=== PATIENT | female | born 1985 | race Caucasian/White ===

== ENCOUNTER 2021-03-20 08:23 | Outpatient (REF) | payer OTHER, SELFPAY ==
[2021-03-20 11:17] LABS: MANUAL DIFF FLAG NO
[2021-03-20 11:19] LABS: Glucose Urine UA NEG (NEG); Leukocyte Esterase Urine NEG (NEG); Nitrite Urine NEG (NEG); Specific Gravity - Urine <= 1.005 (1.005-1.025); Urine Blood TRACE (NEG); Urine Ketones NEG (NEG); Urine Protein NEG (NEG-TRACE)
[2021-03-20 11:22] LABS: Appearance Urine HAZY; Color Urine STRAW
[2021-03-20 11:29] LABS: Basophils Percent Auto 0.6 % (0-2); Eosinophils Absolute Auto 0.1 X10*3/uL (0.0-0.4); Eosinophils Percent Auto 2.1 % (0-4); Hemoglobin 11.3 g/dl (12.0-16.0); Imm Gran Abs Auto 0.01 X10*3/uL (0.00-0.03); Imm Gran Pct Auto 0.3 % (0.0-0.4); Lymphocytes Absolute Auto 1.6 X10*3/uL (1.2-4.9); Lymphocytes Percent Auto 46.6 % (20-40); Mean Corpuscular HGB Conc 33.2 g/dl (31.0-35.0); Mean Corpuscular Hemoglobin 33.1 pg (27.0-33.0); Mean Corpuscular Volume 99.7 fL (80-98); Mean Platelet Volume 10.8 fL (9.4-12.3); Monocytes Absolute Auto 0.4 X10*3/uL (0.1-1.2); Neutrophils Absolute Auto 1.3 X10*3/uL (2.0-8.3); Neutrophils Percent Auto 39.4 % (45-73); Platelet Count 225 X10*3/uL (160-400); Red Blood Count 3.41 X10*6/uL (4.20-5.50); Red Cell Distribution Width 11.9 % (11.0-16.0); White Blood Count 3.4 X10*3/uL (4.8-10.8)
[2021-03-20 11:34] LABS: Bacteria Urine 3+ /LPF; RBC Urine 0-2 /HPF (0); Squamous Epithelial Cell Urine 4+ /LPF; WBC Urine 0-2 /HPF (0-4)
[2021-03-20 11:54] LABS: Alanine Aminotransferase 12 U/L (0-31); Albumin Level 4.1 g/dL (3.5-5.0); Alkaline Phosphatase 53 U/L (39-117); Anion Gap 10 (12-20); Aspartate Amino Transferase 19 U/L (5-31); Bilirubin Total 0.7 mg/dL (0.0-1.0); Blood Urea Nitrogen 16 mg/dL (9-16); Carbon Dioxide 27 mmol/L (22-29); Chloride 104 mmol/L (96-108); Cholesterol 154 mg/dL; Estimated Glomerular Filt Rate > 60; Glucose Random 95 mg/dL (60-115); HDL Cholesterol 66 mg/dL; LDL Cholesterol Calculated 81 mg/dl; Sodium 137 mmol/L (135-145); Total Protein 6.3 g/dL (6.5-8.0); Triglycerides 35 mg/dL
[2021-03-20 12:02] LABS: HIV AB/AG Nonreactive (Nonreactive); HIV Num 1 0.21 S/CO (0.00-0.99); ~Hepatitis B Surface Antibody REACTIVE (Nonreactive)
[2021-03-20 12:03] LABS: Free T4 (Free Thyroxine) 0.97 ng/dL (0.71-1.85); Thyroid Stimulating Hormone 1.01 uIU/mL (0.32-4.0); Vitamin D 25-OH Total 32.4 ng/mL (>30)
[2021-03-20 12:17] LABS: Folate > 20.0 ng/mL (> or = 4.0); Vitamin B12 389 pg/mL (200-900)
[2021-03-20 12:26] LABS: HBc Num1 0.11 S/CO (0.00-0.79); Hepatitis B Core Antibody Nonreactive (Nonreactive); Hepatitis B Surface Antigen Negative (Negative); ~HepC Num1 0.12 S/CO (0.00-0.79); ~Hepatitis C Antibody Nonreactive (Nonreactive)
[2021-03-21 04:42] LABS: Syphilis Screen Nonreactive (Nonreactive)
== END 2021-03-20 08:24 | disposition home or self-care (01) ==
LOC: HO.HMGCLDS 08:23
PROVIDERS: PCP Internal Medicine; Visit Provider Internal Medicine
DX: R32 Unspecified urinary incontinence (principal); F31.9 Bipolar disorder, unspecified; E78.00 Pure hypercholesterolemia, unspecified
CPT/HCPCS: 36415; 80053; 80061; 81001; 82306; 82607; 82746; 84439; 84443; 85025; 86704; 86706; 86780; 86803; 87340; 87389

== ENCOUNTER 2022-05-03 13:51 | Inpatient (IN) | payer OTHER, SELFPAY ==
[2022-05-03 14:45] VITALS: BP 127/75; PULSE 65; RESP 16; TEMP 36.4; O2SAT 99
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
--- NOTE | 2022-05-03 22:44 | P.HPPS_ITS ---
HPI Date of Service: 05/03/22 Chief Complaint: Major depressive disorder Sources of Information: patient interviewed, chart reviewed and crisis/core team assessment reviewed HPI Subjective Notes: [facility] Warning and Conditional Voluntary Healthcare Proxy: No Guardianship: No Medical Problems Affecting Mental Status: No Narrative: Elvia is a 37 y.o. female who carries a dx of Bipolar I DO, r/o BPD. She presented to [facility] for SI. Pt called [employer] and said she didnt want to live anymore, has been self harming, i.e. superficially cutting and burning her feet with matches, punching herself in the head. Has co-morbid diagnosis of anemia. Precipitating factors include a recent break up. Pt is not on any psychiatric medications, has medical cannabis card and say she prefers to self medicate. CBC, CMP wnl. Utox positive for cannabis only. Per crisis eval, pt has reported long hx of SI since she was age 13. She cut her L forearm with an exacto knife and has been punching herself in the head. I attempted to evaluate pt this evening, however she is in bed and going to sleep. She again says she is not interested in psych medication. When asked if she feels safe, pt says I dont know how to answer that, continues to have active suicidal thoughts but says she will reach out to staff if she is feeling unsafe. Medical Evaluation Reviewed: Yes [facility] Medical History (Updated 06/01/21 @ 08:45 by Reji Bob MD) Cyst of spleen HPV (human papilloma virus) infection PMDD (premenstrual dysphoric disorder) Surgical History (Updated 07/17/21 @ 18:53 by Reji Bob MD) H/O LEEP Social History: -Lives with her 2 roommates in [place] Substance History: -Uses cannabis daily Trauma History: -Not obtained Diagnostics Vital Signs (24Hr): Vital Signs - 24 hr 05/03/22 14:45 Temperature 97.6 F Pulse Rate 65 Respiratory Rate 16 Blood Pressure 127/75 Pulse Oximetry 99 Oxygen Delivery Method Room Air Meds/Allergies Meds Home Medications Medication Instructions Recorded Confirmed Type No Known Home Meds 03/23/21 03/23/21 History Allergies Allergies Allergy/AdvReac Type Severity Reaction Status Date / Time No Known Allergies Allergy Verified 08/09/21 08:56 Mental Status Exam Mental Status Exam Narrative: A&O. Well groomed, good hygiene, normal body habitus. Poor eye contact, attentive. No Tics or Tremors. No abnormal involuntary movements. Calm, guarded. Non-pressured speech, spontaneous with regular rate and rhythm, normal volume and prosody. No prolonged speech latency or dysarthria. Mood is ?depressed,? affect is blunted. Endorses active SI and recent SIB. Denies HI upon inquiry. Denies A/VH or delusional thought content. Thoughts are coherent, organized. No known cognitive or memory impairment. Insight/ Judgment is limited. Assessment & Plan Assessment & Plan (1) Bipolar 1 disorder: Status: Acute Code(s): F31.9 - Bipolar disorder, unspecified Plan Elvia is a 37 y.o. female who carries a dx of Bipolar I DO, r/o BPD. She presented to [facility] for SI. Pt called [employer] OPERATOR and said she didnt want to live anymore, has been self harming, i.e. superficially cutting and burning her feet with matches, punching herself in the head. Has co-morbid diagnosis of anemia. Precipitating factors include a recent break up. Pt is not on any psychiatric medications, has medical cannabis card and say she prefers to self medicate. CBC, CMP wnl. Utox positive for cannabis only. Plan: Continue assessment and engagement, currently declining med management Q15 min safety checks, CV Monitor response to medications. Monitor for safety in the milieu. Discharge on stabilization. Patient seen. Chart reviewed. Discussed with team. Obtain collateral contact info?as needed Patient educated on: medication risk/benefits and therapeutic strategies Reason for continued inpatient stay Substantial Risk for: harm to self, rapid decompensation and med/psych decompensation
[2022-05-04 06:00] VITALS: BP 122/72; PULSE 74; RESP 18; TEMP 36.6; O2SAT 99
[2022-05-04 08:31] LABS: Cholesterol 194 mg/dL; HDL Cholesterol 68 mg/dL; LDL Cholesterol Calculated 117 mg/dl; Triglycerides 46 mg/dL
[2022-05-04 08:37] LABS: Estimated Average Glucose 100 mg/dL; Hemoglobin A1c % 5.1 %
[2022-05-04 08:57] LABS: Free T4 (Free Thyroxine) 0.99 ng/dL (0.71-1.85); Thyroid Stimulating Hormone 1.15 uIU/mL (0.32-4.0)
[2022-05-04 10:35] LABS: Folate 18.9 ng/mL (> or = 4.0); Vitamin B12 415 pg/mL (200-900)
--- NOTE | 2022-05-04 13:15 | P.PNPSI_ITS ---
Subjective Subjective Date of Service: 05/04/22 Reason For Visit: Major depressive disorder Interim History: Patient seen. DW team. Patient reports having suicidal ideation and not comitted to being alive. She reports she recently resorted to cutting and punching her head after her toxic break up. She was somewhat pressured and circumstantial in her thought process. She reported she was diagnosed with Complex PTSD. She was in the past diagnosed with bipolar disorder and was hospitalized at least 3 times. She reports she has not been on medications since 2009. Goes to explain it is because psychiatrists are paid by the pharmaceutical industry and don't explain how things work in my brain. She is mistrustful. She believes that Doxycycline caused her current episode because it messed with my gastrointestinal tract and my serotonin. She is ambivalent about medications. Discussed Abilify as a mood stabilizing medication. She had been on Lexapro, Effexor, [place], Seroquel, Depakote and developed side effects or didn't tolerate them. Mental Status Exam Mental Status Exam Patient Appearance: Appropriate Patient Orientation: Person, Place, Time and Situation Level of Consciousness: Awake Patient Behavior: Talkative, Restless, Crying and Poor Eye Contact Mood Description: Suspicious, Depressed, Anxious and Labile Affect Description: Anxious and Labile Patient Cognition Impaired: No Ability to Follow Directions: Excellent Speech Pattern: Perseverating, Rambling, Rapid, Excessive and Pressured Memory Description: Remote Impaired Hallucinations: None Delusions: Paranoid Ideation Thought Process: Racing Thought Content: positive for Racing and positive for Perseveration Depressive Symptoms: Increased Anxiety, Increased Irritability, Thoughts of /Suicide and Difficulty Concentrating Judgement: Fair Diagnostics Vital Signs (24Hr): Vital Signs - 24 hr 05/03/22 14:45 05/04/22 06:00 Temperature 97.6 F 97.9 F Pulse Rate 65 74 Respiratory Rate 16 18 Blood Pressure 127/75 122/72 Pulse Oximetry 99 99 Oxygen Delivery Method Room Air Labs Labs: Laboratory Results - last 48 hr 05/04/22 05/04/22 05/04/22 07:51 07:51 07:51 Estimat Average Glucose 100 Hemoglobin A1c % 5.1 Magnesium 2.0 Triglycerides 46 Cholesterol 194 D LDL Cholesterol, Calc 117 HDL Cholesterol 68 Vitamin B12 415 Folate 18.9 TSH 1.15 Free T4 0.99 Medications Medications Current Medications Acetaminophen (Acetaminophen 325 Mg Tablet) 650 mg PO Q6H PRN PRN Reason: Headache/Pain Mild Scale (1-3) Al Hydroxide/Mg Hydroxide (Magnesium Hydrox/Alum Hydrox 30 Ml Oral.Susp) 30 ml PO Q6H PRN PRN Reason: Heartburn/Nausea Aripiprazole (Aripiprazole 5 Mg Tablet) 5 mg PO DAILY NATAN Hydroxyzine HCl (Hydroxyzine Hcl 25 Mg Tablet) 25 mg PO Q6H PRN PRN Reason: Anxiety Magnesium Hydroxide (Milk Of Magnesia 30 Ml Oral.Susp) 30 ml PO DAILY PRN PRN Reason: Constipation Trazodone HCl (Trazodone Hcl 50 Mg Tablet) 50 mg PO BEDTIME PRN PRN Reason: Insomnia Allergies Allergies Allergy/AdvReac Type Severity Reaction Status Date / Time No Known Allergies Allergy Verified 08/09/21 08:56 Assessment & Plan Assessment & Plan (1) Bipolar 1 disorder: Status: Acute Code(s): F31.9 - Bipolar disorder, unspecified Plan Elvia is a 37 y.o. female who carries a dx of Bipolar I DO, r/o BPD. She presented to [facility] ED for SI. Pt called [employer] and said she didnt want to live anymore, has been self harming, i.e. superficially cutting and burning her feet with matches, punching herself in the head. Has co-morbid diagnosis of anemia. Precipitating factors include a recent break up. Pt is not on any psychiatric medications, has medical cannabis card and say she prefers to self medicate. CBC, CMP wnl. Utox positive for cannabis only. Plan: Continue assessment and engagement, currently declining med management Q15 min safety checks, CV Monitor response to medications. Monitor for safety in the milieu. Discharge on stabilization. Patient seen. Chart reviewed. Discussed with team. Obtain collateral contact info?as needed 05/04: Abilify 5 mg daily Patient will be offered and was educated about R/B. I spent minutes with the patient and/or on the patient floor today, greater than?50% of which was spent counseling/coordinating care. Patient educated on: diagnosis and medication risk/benefits Reason for contiued inpatient stay Substantial Risk for: harm to self and rapid decompensation
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
[2022-05-04 16:46] VITALS: BP 108/69; PULSE 75; TEMP 36.7; O2SAT 98
[2022-05-05 06:00] VITALS: BP 111/71; PULSE 72; RESP 18; TEMP 36.4; O2SAT 99
--- NOTE | 2022-05-05 14:26 | P.PNPSI_ITS ---
Subjective Subjective Date of Service: 05/05/22 Reason For Visit: Major depressive disorder Interim History: Patient seen. DW team. Patient refused to take the Abilify x2. Patient questioning Medications and appears ambivalent and mistrustful trying medications. She is circumstantial In her thought process. she denies hallucinations. She denies active suicidal ideation. She says that her roommate has brought her mood up Due to her socializing more. Review of Systems Review of Systems Denies chest pain Denies shortness of breath Denies nausea vomiting diarrhea Denies fever chills Mental Status Exam Mental Status Exam Narrative: A&O. Well groomed, good hygiene, normal body habitus. Poor eye contact, attentive. No Tics or Tremors. No abnormal involuntary movements. Calm, guarded. Non-pressured speech, spontaneous with regular rate and rhythm, normal volume and prosody. No prolonged speech latency or dysarthria. Mood is ?depressed,? affect is blunted. Endorses active SI and recent SIB. Denies HI upon inquiry. Denies A/VH or delusional thought content. Thoughts are coherent, organized. No known cognitive or memory impairment. Insight/ Judgment is limited. Patient Appearance: Appropriate Patient Orientation: Person, Place, Time and Situation Level of Consciousness: Awake Patient Behavior: Talkative, Restless, Crying and Poor Eye Contact Mood Description: Suspicious, Depressed, Anxious and Labile Affect Description: Anxious and Labile Patient Cognition Impaired: No Ability to Follow Directions: Excellent Speech Pattern: Perseverating, Rambling, Rapid, Excessive and Pressured Memory Description: Remote Impaired Diagnostics Vital Signs (24Hr): Vital Signs - 24 hr 05/05/22 06:00 05/05/22 16:00 Temperature 97.6 F 98.1 F Pulse Rate 72 82 Respiratory Rate 18 Blood Pressure 111/71 107/81 Pulse Oximetry 99 96 Oxygen Delivery Method Room Air Labs Labs: Laboratory Results - last 48 hr 05/04/22 05/04/22 05/04/22 07:51 07:51 07:51 Estimat Average Glucose 100 Hemoglobin A1c % 5.1 Magnesium 2.0 Triglycerides 46 Cholesterol 194 D LDL Cholesterol, Calc 117 HDL Cholesterol 68 Vitamin B12 415 Folate 18.9 TSH 1.15 Free T4 0.99 Medications Medications Current Medications Acetaminophen (Acetaminophen 325 Mg Tablet) 650 mg PO Q6H PRN PRN Reason: Headache/Pain Mild Scale (1-3) Al Hydroxide/Mg Hydroxide (Magnesium Hydrox/Alum Hydrox 30 Ml Oral.Susp) 30 ml PO Q6H PRN PRN Reason: Heartburn/Nausea Aripiprazole (Aripiprazole 5 Mg Tablet) 5 mg PO DAILY NATAN Last Admin: 05/05/22 08:35 Dose: Not Given Hydroxyzine HCl (Hydroxyzine Hcl 25 Mg Tablet) 25 mg PO Q6H PRN PRN Reason: Anxiety Magnesium Hydroxide (Milk Of Magnesia 30 Ml Oral.Susp) 30 ml PO DAILY PRN PRN Reason: Constipation Trazodone HCl (Trazodone Hcl 50 Mg Tablet) 50 mg PO BEDTIME PRN PRN Reason: Insomnia Allergies Allergies Allergy/AdvReac Type Severity Reaction Status Date / Time No Known Allergies Allergy Verified 08/09/21 08:56 Assessment & Plan Assessment & Plan (1) Bipolar 1 disorder: Status: Acute Code(s): F31.9 - Bipolar disorder, unspecified (2) PTSD (post-traumatic stress disorder): Status: Acute Code(s): F43.10 - Post-traumatic stress disorder, unspecified (3) Personality disorder: Status: Acute Code(s): F60.9 - Personality disorder, unspecified (4) Bipolar disorder: Status: Acute Code(s): F31.9 - Bipolar disorder, unspecified Plan Elvia is a 37 y.o. female who carries a dx of Bipolar I DO, r/o BPD. She presented to [facility] for SI. Pt called [employer] and said she didnt want to live anymore, has been self harming, i.e. superficially cutting and burning her feet with matches, punching herself in the head. Has co-morbid diagnosis of anemia. Precipitating factors include a recent break up. Pt is not on any psychiatric medications, has medical cannabis card and say she prefers to self medicate. CBC, CMP wnl. Utox positive for cannabis only. Plan: Continue assessment and engagement, currently declining med management Q15 min safety checks, CV Monitor response to medications. Monitor for safety in the milieu. Discharge on stabilization. Patient seen. Chart reviewed. Discussed with team. Obtain collateral contact info?as needed 05/04: Abilify 5 mg daily Patient will be offered and was educated about R/B. 05/05/2022: Encourage Abilify adherence. I spent minutes with the patient and/or on the patient floor today, greater than?50% of which was spent counseling/coordinating care. Reason for contiued inpatient stay Substantial Risk for: harm to self
[2022-05-05 16:00] VITALS: BP 107/81; PULSE 82; TEMP 36.7; O2SAT 96
[2022-05-06 06:00] VITALS: BP 110/67; PULSE 98; RESP 16; TEMP 36.6; O2SAT 98
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
[2022-05-06 17:00] VITALS: BP 118/69; PULSE 83; TEMP 36.9
--- NOTE | 2022-05-06 22:14 | PC.NURSE ---
pt signed a 3 day on 05/06/22, up on 05/09/22.
[2022-05-07 08:30] VITALS: BP 119/81; PULSE 91; TEMP 36.8
[2022-05-07 18:00] VITALS: BP 131/69; PULSE 81; TEMP 36.6; O2SAT 95
--- NOTE | 2022-05-07 19:26 | P.PNPSI_ITS ---
Subjective Subjective Date of Service: 05/07/22 Reason For Visit: Major depressive disorder Subjective Notes: [facility] Warning Interim History: I spoke with pt and her team. Pt says she feels very triggered on the unit, signed 3 day notice. Interested in PHP. Says she is not taking the abilify, has had bad experiences with medications. Pt asks if she has BPD, reviewed criteria and she meets enough to warrant diagnosis. Says in the past she has been diagnosed with bipolar spectrum disorder but does not feel she has had manic episodes. She does have a hx of poor sleep but attributes this to anxiety and she missed her sleep, messes up my whole day if I dont sleep. Discussed dx of PTSD, MDD recurrent. Says she gets into funks. Pt also says her sx, including suicidal ideation, are worse during her menstruation, may have PMDD as a rule out. Pt identifies stressors as financial, still living with her ex bf. She has job instability, used to work as a food beverage server but now feels her mental health issues prevent her from tolerating work. Complains of poor concentration, wheels are turning, may be a function of PTSD although pt says she has wondered if she has ADHD. She denies having nightmares or flashbacks. Pt disclosed recent self harm behaviors, says they have been worsening recently, as she is now punching herself in the head and burned her genitals with matches, not requiring medical attn. Discussed past meds: effexor xr (doesnt remember), seroquel ( induced psychosis, restless leg sydrome ), lexapro ( least bad experiences with that one, not sure why she stopped taking it), valium, klonopin, lithium ( wanted salt like crazy, made me shake ), depakote ( made me severely ill ). Medication Compliance: Yes Side effects from medications: No Attending Groups: Intermittent Review of Systems Acute medical concerns: No Medical Review of Systems: unchanged Mental Status Exam Mental Status Exam Narrative: A&O. Well groomed, good hygiene, normal body habitus. Poor eye contact, attentive. No Tics or Tremors. No abnormal involuntary movements. Calm, cooperative. Non-pressured speech, spontaneous with regular rate and rhythm, normal volume and prosody. No prolonged speech latency or dysarthria. Mood is ?depressed,? affect is anxious. Denies SI/SIB. Denies HI upon inquiry. Denies A/VH or delusional thought content. Thoughts are coherent, organized. No known cognitive or memory impairment. Insight/ Judgment is limited. Diagnostics Vital Signs (24Hr): Vital Signs - 24 hr 05/07/22 08:30 Temperature 98.2 F Pulse Rate 91 Blood Pressure 119/81 Medications Medications Current Medications Acetaminophen (Acetaminophen 325 Mg Tablet) 650 mg PO Q6H PRN PRN Reason: Headache/Pain Mild Scale (1-3) Al Hydroxide/Mg Hydroxide (Magnesium Hydrox/Alum Hydrox 30 Ml Oral.Susp) 30 ml PO Q6H PRN PRN Reason: Heartburn/Nausea Aripiprazole (Aripiprazole 5 Mg Tablet) 5 mg PO DAILY NATAN Last Admin: 05/07/22 09:10 Dose: Not Given Hydroxyzine HCl (Hydroxyzine Hcl 25 Mg Tablet) 25 mg PO Q6H PRN PRN Reason: Anxiety Magnesium Hydroxide (Milk Of Magnesia 30 Ml Oral.Susp) 30 ml PO DAILY PRN PRN Reason: Constipation Trazodone HCl (Trazodone Hcl 50 Mg Tablet) 50 mg PO BEDTIME PRN PRN Reason: Insomnia Allergies Allergies Allergy/AdvReac Type Severity Reaction Status Date / Time No Known Allergies Allergy Verified 08/09/21 08:56 Assessment & Plan Assessment & Plan (1) Bipolar 1 disorder: Status: Resolved Code(s): F31.9 - Bipolar disorder, unspecified (2) PTSD (post-traumatic stress disorder): Status: Inactive Code(s): F43.10 - Post-traumatic stress disorder, unspecified (3) Personality disorder: Status: Inactive Code(s): F60.9 - Personality disorder, unspecified (4) Bipolar disorder: Status: Resolved Code(s): F31.9 - Bipolar disorder, unspecified Plan Elvia is a 37 y.o. female who carries a dx of Bipolar I DO, r/o BPD. She presented to [facility] ED for SI. Pt called [employer] and said she didnt want to live anymore, has been self harming, i.e. superficially cutting and burning her feet with matches, punching herself in the head. Has co-morbid diagnosis of anemia. Precipitating factors include a recent break up. Pt is not on any psychiatric medications, has medical cannabis card and say she prefers to self medicate. CBC, CMP wnl. Utox positive for cannabis only. Plan: Continue assessment and engagement, currently declining med management 05/04: Abilify 5 mg daily Patient will be offered and was educated about R/B. 05/05: Encourage Abilify adherence. 05/06: No med changes 05/07: Discontinue abilify, start trileptal 75 mg BID for anxiety, agitation, mood stability, and BPD traits Q15 min safety checks, CV Monitor response to medications. Monitor for safety in the milieu. Discharge on stabilization. Patient seen. Chart reviewed. Discussed with team. Obtain collateral contact info?as needed I spent minutes with the patient and/or on the patient floor today, greater than?50% of which was spent counseling/coordinating care. Patient educated on: diagnosis, medication risk/benefits and therapeutic strategies Reason for contiued inpatient stay Substantial Risk for: med/psych decompensation
[2022-05-07] MEDS: OXcarbazepine 150 MG TABLET 75 MG PO (22:28)
[2022-05-08 05:58] VITALS: BP 110/65; PULSE 98; RESP 16; TEMP 36.5; O2SAT 98
[2022-05-08] MEDS: OXcarbazepine 150 MG TABLET 75 MG PO ×2 (08:27→23:21)
[2022-05-08 09:29] VITALS: BP 123/75; PULSE 87; RESP 18; TEMP 36.4; O2SAT 99
[2022-05-08 18:00] VITALS: BP 95/56; PULSE 86; TEMP 36.8
--- NOTE | 2022-05-08 22:52 | P.PNPSI_ITS ---
Subjective Subjective Date of Service: 05/08/22 Reason For Visit: Major depressive disorder Interim History: I spoke with pt's team and pt. She reports I feel like i could sleep like all day, but also says her brain is more alert on trileptal. Says her mood is good, she is laying low. Feels content knowing im gonna get out of here tomorrow. Plans to step-down to [facility]. Has been educating herself on BPD. Mental Status Exam Mental Status Exam Narrative: A&O. Well groomed, good hygiene, normal body habitus. Poor eye contact, attentive. No Tics or Tremors. No abnormal involuntary movements. Calm, cooperative. Non-pressured speech, spontaneous with regular rate and rhythm, normal volume and prosody. No prolonged speech latency or dysarthria. Mood is ?good,? affect is anxious. Denies SI/SIB. Denies HI upon inquiry. Denies A/VH or delusional thought content. Thoughts are coherent, organized. No known cognitive or memory impairment. Insight/ Judgment is limited. Diagnostics Vital Signs (24Hr): Vital Signs - 24 hr 05/08/22 18:00 05/09/22 08:49 Temperature 98.3 F 97.6 F Pulse Rate 86 73 Blood Pressure 95/56 L 122/66 Pulse Oximetry 99 Oxygen Delivery Method Room Air Medications Allergies Allergies Allergy/AdvReac Type Severity Reaction Status Date / Time No Known Allergies Allergy Verified 08/09/21 08:56 Assessment & Plan Assessment & Plan (1) Bipolar 1 disorder: Status: Resolved Code(s): F31.9 - Bipolar disorder, unspecified (2) PTSD (post-traumatic stress disorder): Status: Inactive Code(s): F43.10 - Post-traumatic stress disorder, unspecified (3) Personality disorder: Status: Inactive Code(s): F60.9 - Personality disorder, unspecified (4) Bipolar disorder: Status: Resolved Code(s): F31.9 - Bipolar disorder, unspecified Plan Elvia is a 37 y.o. female who carries a dx of Bipolar I DO, r/o BPD. She presented to [facility] ED for SI. Pt called [employer] and said she didnt want to live anymore, has been self harming, i.e. superficially cutting and burning her feet with matches, punching herself in the head. Has co-morbid diagnosis of anemia. Precipitating factors include a recent break up. Pt is not on any psychiatric medications, has medical cannabis card and say she prefers to self medicate. CBC, CMP wnl. Utox positive for cannabis only. Plan: Continue assessment and engagement, currently declining med management 05/04: Abilify 5 mg daily Patient will be offered and was educated about R/B. 05/05: Encourage Abilify adherence. 05/06: No med changes 05/07: Discontinue abilify, start trileptal 75 mg BID for anxiety, agitation, mood stability, and BPD traits 05/08: Pt advocating to discharge tomorrow and step-down to [facility] as she is feeling safe but feels the inpatient milieu is triggering for her. Q15 min safety checks, CV Monitor response to medications. Monitor for safety in the milieu. Discharge on stabilization. Patient seen. Chart reviewed. Discussed with team. Obtain collateral contact info?as needed I spent minutes with the patient and/or on the patient floor today, greater than?50% of which was spent counseling/coordinating care. Patient educated on: medication risk/benefits and therapeutic strategies Reason for contiued inpatient stay Substantial Risk for: med/psych decompensation
[2022-05-09] MEDS: OXcarbazepine 150 MG TABLET 75 MG PO (08:46)
[2022-05-09 08:49] VITALS: BP 122/66; PULSE 73; TEMP 36.4; O2SAT 99
--- NOTE | 2022-05-09 15:53 | PM.PSYDC ---
DS: Providers Provider Date of Service: 05/09/22 Date of admission: 05/03/22 13:51 Primary care physician: None Physician Consults: 05/03/22 18:09 Consult to Hospitalist Routine Consulting Provider: Hospitalist Reason For Exam: new admit from [facility] DS: Diagnosis Discharge Diagnosis (1) Bipolar 1 disorder: Status: Resolved (2) PTSD (post-traumatic stress disorder): Status: Inactive (3) Personality disorder: Status: Inactive (4) Bipolar disorder: Status: Resolved DS: Medications Discharge Medications Home Medications: Home Medications Medication Instructions Recorded Confirmed No Known Home Meds 05/04/22 05/04/22 Previous Rx's Medication Instructions Recorded oxcarbazepine 150 mg tablet 75 mg PO BID #60 tabs 05/09/22 Mental Status Exam Mental Status Exam Narrative: A&O. Well groomed, good hygiene, normal body habitus. Poor eye contact, attentive. No Tics or Tremors. No abnormal involuntary movements. Calm, cooperative. Non-pressured speech, spontaneous with regular rate and rhythm, normal volume and prosody. No prolonged speech latency or dysarthria. Mood is ?good,? affect is anxious. Denies SI/SIB. Denies HI upon inquiry. Denies A/VH or delusional thought content. Thoughts are coherent, organized. No known cognitive or memory impairment. Insight/ Judgment is limited. Data Data Completed and Pending Completed studies during hospitalization [Text1]: 05/04/22 05/04/22 05/04/22 07:51 07:51 07:51 Estimat Average Glucose 100 Hemoglobin A1c % 5.1 Magnesium 2.0 Triglycerides 46 Cholesterol 194 D LDL Cholesterol, Calc 117 HDL Cholesterol 68 Vitamin B12 415 Folate 18.9 TSH 1.15 Free T4 0.99 DS: Summary Hospital Course Hospital Course: Elvia is a 37 y.o. female who carries a dx of Bipolar I DO, r/o BPD. She presented to [facility] ED for SI. Pt called [employer] and said she didnt want to live anymore, has been self harming, i.e. superficially cutting and burning her feet with matches, punching herself in the head. Has co-morbid diagnosis of anemia. Precipitating factors include a recent break up. Pt is not on any psychiatric medications, has medical cannabis card and say she prefers to self medicate. CBC, CMP wnl. Utox positive for cannabis only. Plan: Continue assessment and engagement, currently declining med management 05/04: Abilify 5 mg daily Patient will be offered and was educated about R/B. 05/05: Encourage Abilify adherence. 05/06: No med changes 05/07: Discontinue abilify, start trileptal 75 mg BID for anxiety, agitation, mood stability, and BPD traits 05/08: Pt advocating to discharge tomorrow and step-down to PHP as she is feeling safe but feels the inpatient milieu is triggering for her. 05/09: Continue trileptal 75 mg BID and follow up with PHP referral. Pt feels safe, no imminent safety concerns. Time spent discussing smoking cessation with patient: 3 to 10 minutes Status at Discharge Functional status at discharge: independent ambulation Overall status at discharge: patient is progressing back to baseline Time Spent with Patient Time attestation: Total time spent providing and/or coordinating discharge services: Time spent: Less than 30 minutes Discharge Plan Discharge Anticipated Discharge Date/Time: 05/09/22 08:33 Patient Disposition: Home, Self-Care Discharge Diagnosis: Borderline Personality Disorder PTSD Referrals: [facility] [Other] (Please utilize the [facility] for [id number] support and additional resources) Therapy: [facility] [Other] - 05/13/22 11:00 am (This is a Telehealth appointment) Partial Hospitalization Program (PHP) [Other] (You will be contacted on Thursday 05/10 or Sunday 05/13 to complete the intake assessment over the phone. You are first on the waitlist to begin PHP and will start next week) OTHER PROVIDER [Other] - 1 Week (PT. HAS AN APPOINTMENT IN BUT DOESNT REMMEMBER NAME NEW PCP) Discharge Medications: New oxcarbazepine 150 mg Tablet 75 mg PO BID Qty: 60 0RF oxcarbazepine [Trileptal] 150 mg tablet 75 mg PO BID Qty: 30 0RF Discharge Orders: Discharge Order (Routine); Ordered 05/09/22 Ordered By: Radha Rizvi Diet: Advance to usual diet Activity on Discharge: As tolerated Stand Alone Forms: Patient Portal Discharge page, Community Support Care Plan Goals: Continue psychiatric medications as prescribed and follow up with outpatient referrals and PCP. Health Concerns: Self Harm Depression Plan of Treatment: Attend follow up appointments with OP psych services and PCP Patient will continue on psychotropic medication regimen for mood stability Take medications as directed A one month supply of medication has been sent to your pharmacy Crisis Team if needed [phone] Call and or return if needed Assessment: Risk assessment at time of discharge:? Patient was interviewed prior to discharge and found to be fully oriented and without any SI or HI. Patient has insight and demonstrates good judgment in terms of wanting to pursue treatment. Patient is not in imminent risk of harm to self or others and has a safety plan that includes presenting to the closest ER or calling 911 if feeling unsafe.? Patient has been observed closely by nursing and unit staff throughout admission; patient has not engaged in any behaviors that suggest dangerousness to self or others and has demonstrated appropriate behaviors and impulse control Discharge Date/Time: 05/09/22 14:10
== END 2022-05-09 14:10 | disposition home or self-care (01) | DRG 753 ==
PROVIDERS: Registered Nurse; Admitting Provider Psychiatry & Neurology Psychiatry; Visit Provider Psychiatry & Neurology Psychiatry
DX: F31.9 Bipolar disorder, unspecified (principal); R45.851 Suicidal ideations; F43.10 Post-traumatic stress disorder, unspecified; Z87.891 Personal history of nicotine dependence; Z91.52 Personal history of nonsuicidal self-harm
CPT/HCPCS: 36415; 80061; 82607; 82746; 83036; 83735; 84439; 84443

== ENCOUNTER 2022-09-27 09:44 | Outpatient (REF) | payer OTHER, BC, SELFPAY ==
--- NOTE | ~2022-09-27 | XR_ITS ---
EXAMINATION: XR ANKLE, RIGHT XR FOOT, RIGHT CLINICAL INFORMATION: Pain COMPARISON: None TECHNIQUE: 2 views of the right ankle. 3 views of the right foot. FINDINGS: Right ankle: No fracture or dislocation. The ankle mortise is congruent. No ankle joint effusion. Small plantar and Achilles' heel spurs. The soft tissues are unremarkable. Right foot: No fracture or dislocation. Narrowing of the joint space at the first metatarsophalangeal joint with small osteophytes. Remaining joint spaces are maintained. The soft tissues are unremarkable. XR/XR ankle RT min 3V IMPRESSION: 1. Small heel spurs. 2. Mild degenerative change at the first metatarsophalangeal joint.
--- NOTE | ~2022-09-27 | XR_ITS ---
EXAMINATION: XR ANKLE, RIGHT XR FOOT, RIGHT CLINICAL INFORMATION: Pain COMPARISON: None TECHNIQUE: 2 views of the right ankle. 3 views of the right foot. FINDINGS: Right ankle: No fracture or dislocation. The ankle mortise is congruent. No ankle joint effusion. Small plantar and Achilles' heel spurs. The soft tissues are unremarkable. Right foot: No fracture or dislocation. Narrowing of the joint space at the first metatarsophalangeal joint with small osteophytes. Remaining joint spaces are maintained. The soft tissues are unremarkable. XR/XR foot RT min 3V IMPRESSION: 1. Small heel spurs. 2. Mild degenerative change at the first metatarsophalangeal joint.
== END 2022-09-27 09:45 | disposition home or self-care (01) ==
LOC: HO.HMGCX 09:44
PROVIDERS: PCP Internal Medicine; Visit Provider Nurse Practitioner Family
DX: M79.671 Pain in right foot (principal)
CPT/HCPCS: 73610; 73630